=== PATIENT | female | born 1955 | race Caucasian/White ===

== ENCOUNTER 2018-03-23 12:50 | Inpatient (IN) | payer OTHER ==
[~2018-03-23] VITALS: Ht 160 cm; Wt 70.3 kg
--- NOTE | 2018-03-23 13:33 | ED CARDIAC/CP/PALPITATIONS ---
History of Present Illness General Chief Complaint: Chest Pain Stated Complaint: CP, X 4 DAYS Source: patient, old records Exam Limitations: no limitations Vital Signs & Intake/Output Vital Signs & Intake/Output ED Intake and Output 03/26 0000 03/25 1200 Intake Total 128 Output Total Balance 128 Intake, IV 128 Patient 155 lb Weight Allergies Coded Allergies: No Known Allergies (03/23/18) Reconcile Medications Amlodipine Besylate/Benazepril (Lotrel 5-20 MG Capsule) 5 MG-20 MG CAPSULE 1 CAP PO DAILY HTN (Reported) Atorvastatin Calcium 80 MG TABLET 80 MG PO 1700 HLD Heparin Sodium,Porcine/D5w (Heparin-D5w 25,000 Unit/500 Ml) 25,000 UNIT/500 ML ( 50 UNIT/ML) IV.SOLN 0 IV SEE ADMIN CRITERIA Anti Coagulation To be administered based on protocol Metoprolol Tartrate 25 MG TABLET 1 TAB PO DAILY [facility] Pantoprazole Sodium 40 MG TABLET.DR 1 TAB PO DAILY gerd (Reported) Sertraline HCl (Zoloft) 100 MG TABLET 1 TAB PO DAILY ANXIETY (Reported) Ticagrelor (Brilinta) 90 MG TABLET 90 MG PO BID [facility] Triage Note: 62F REPORTS 4 DAYS OF RIGHT ARM PAIN THAT RADIATES INTO MIDSTERNAL AREA AND SOMETIMES INTO BACK OF NECK. AT TIMES PAIN IS REPRODUCIBLE WITH PALPATION. ENDORSES N/V X1 TIME TODAY. PT WAS DOING ACTIVITY OUTSIDE. ENDORSES DIZZINESS, LIGHTHEADEDNESS AND FACIAL TINGLING. PT RECENTLY HAD PARTIAL THYROIDECTOMY Triage Nurses Notes Reviewed? yes Onset: Abrupt Duration: day(s):, gone now, intermittent, exertional HPI: Patient presents for evaluation of a lower substernal chest tightness that has been exertional and intermittent since onset 4 days ago. Patient states that overnight she began having nausea and vomiting with her chest pain episodes. She states she felt a little diaphoretic today during a chest pain episode while at a local retailer. She states that she experienced right upper extremity pain with her chest pain today but comments that yesterday both arms hurt. Patient is a family history of coronary artery disease in her father. She has a distant smoking history having quit about 30 years ago. She denies drug use. She drinks 1 or so alcoholic beverages per week generally. Fortunately the patient denies chest pain at this time. Past History Travel History Traveled to [place] past 21 day No Medical History Any Pertinent Medical History? see below for history Neurological: NONE EENT: NONE Cardiovascular: NONE Respiratory: NONE Gastrointestinal: NONE Hepatic: NONE Renal: NONE Musculoskeletal: NONE Psychiatric: NONE Endocrine: PARTIAL THYROIDECTOMY Surgical History Surgical History: non-contributory Psychosocial History What is your primary language South [place] Tobacco Use: Never used Family History Hx Contributory? No Review of Systems Review of Systems Constitutional: Reports: no symptoms. EENTM: Reports: no symptoms. Respiratory: Reports: no symptoms. Cardiovascular: Reports: see HPI. GI: Reports: no symptoms. Genitourinary: Reports: no symptoms. Musculoskeletal: Reports: no symptoms. Skin: Reports: no symptoms. Neurological/Psychological: Reports: no symptoms. Hematologic/Endocrine: Reports: no symptoms. Immunologic/Allergic: Reports: no symptoms. All Other Systems: Reviewed and Negative Physical Exam Physical Exam Cardiovascular: see below Comments: Gen.: Well-nourished, well-developed, no acute respiratory distress. Head: Normocephalic, atraumatic. Eyes: Normal inspection bilaterally Ears: Normal inspection bilaterally Nose: Normal inspection Throat/mouth : Moist mucosa Neck: Supple, full range of motion, no goiter Heart: Regular rate and rhythm, no murmurs rubs or gallops Lungs: Clear to auscultation bilaterally with normal air entry Chest: Nontender Back: Normal range of motion Abdomen: Soft, nontender, nondistended, normal bowel sounds Extremities: Normal range of motion grossly, equal radial pulses, no cyanosis clubbing or edema, calves nontender Neurologic: Cranial nerves grossly intact, speech is clear Skin: warm and dry Psychiatric: Calm, cooperative, no apparent delusions or hallucinations Core Measures ACS in differential dx? Yes CVA/TIA Diagnosis No Sepsis Present: No Sepsis Focused Exam Completed? No Progress Differential Diagnosis: AMI, musculoskeletal pain, pericarditis, unstable angina Plan of Care: Orders Procedure Date/time Status Nothing by Mouth 03/23 D Active TROPONIN LEVEL 03/23 1600 Active EKG 03/23 1532 Active Patient Data 03/23 1517 Active Misc Message 03/23 1447 Active ED Holding Orders 03/23 1447 Active Admit to inpatient 03/23 1447 Active Vital Signs 03/23 1447 Active Code Status 03/23 1447 Active EKG 03/23 1400 Active Add-on Test (ER Only) 03/23 1332 Active MAGNESIUM 03/23 1321 Complete THYROID STIMULATING HORMONE 03/23 1307 Complete TROPONIN LEVEL 03/23 1307 Complete FREE T4 03/23 1307 Complete COMPREHENSIVE METABOLIC PANEL 03/23 1307 Complete CBC WITHOUT DIFFERENTIAL 03/23 1307 Complete EKG 03/23 1252 Active Current Medications Sig/Vern Start time Last Medication Dose Stop Time Status Admin Sodium Chloride 500 ML BOLUS ONE 03/23 1545 UNVr (Normal Saline 0.9%) 03/23 1904 Nitroglycerin 0.5 GM ONCE ONE 03/23 1530 UNVr (Nitro-Bid) 03/23 1531 Enoxaparin Sodium 70 MG BID 03/23 1434 UNVr (Lovenox) Laboratory Tests 03/23/18 1321: Anion Gap 11, Estimated GFR > 60, BUN/Creatinine Ratio 21.4, Glucose 104 H, Calcium 9.7, Magnesium 2.0, Total Bilirubin 0.6, AST 56 H, ALT 33, Alkaline Phosphatase 117, Troponin I 2.36 *H, Total Protein 7.7, Albumin 4.4, Globulin 3.3, Albumin/Globulin Ratio 1.3, TSH 5.520 H, Free T4 0.97, CBC w Diff NO MAN DIFF REQ, RBC 4.95, MCV 88.3, MCH 29.4, MCHC 33.2, RDW 13.9, MPV 10.1, Gran % 81.6 H, Lymphocytes % 13.5 L, Monocytes % 3.9, Eosinophils % 0.8, Basophils % 0.2, Absolute Granulocytes 7.2 H, Absolute Lymphocytes 1.2, Absolute Monocytes 0.3, Absolute Eosinophils 0.1, Absolute Basophils 0 Initial ED EKG: NSR, ST depression Prior EKG: changed (from 2005) Comments: 03/23/2018 1:55:44 PM patient states the pain is returning, according to her nurse. Blood pressure to be checked, sublingual nitroglycerin and EKG ordered. 03/23/2018 2:12:10 PM patient's troponin is positive. Cardiology paged. Repeat EKG shows improvement of patient's ST segment depressions. 03/23/2018 3:32:18 PM patient had a return of her chest pain with neck pain as well after using the bathroom. I have ordered Nitropaste and repeat EKG. Her case has been discussed with both the pie cutter and the hospitalist. Jeffery River MD did not feel the patient needed the cardiac catheterization lab at this time. He did recommend medical management including anticoagulation. Departure Departure Disposition: STILL A PATIENT Condition: Stable Clinical Impression Primary Impression: Non-STEMI (non-ST elevated myocardial infarction) Referrals: Arcelia Bragg (PCP/Family) Departure Forms: Customer Survey General Discharge Information Prescriptions: Current Visit Scripts Heparin Sodium,Porcine/D5w (Heparin-D5w 25,000 Unit/500 Ml) 0 IV SEE ADMIN CRITERIA #1 UNITS To be administered based on protocol Metoprolol Tartrate 1 TAB PO DAILY #60 TAB Ticagrelor (Brilinta) 90 MG PO BID #30 TAB Atorvastatin Calcium 80 MG PO 1700 #120 TAB Admission Note Spoke With: Lloyd Andino MD Documentation of Exam: Documentation of any treatments & extenuating circumstances including Concerns Regarding Discharge (functional status, medication knowledge or non-compliance, living conditions, etc.) that warrant an admission rather than observation: Patient presents for evaluation of severe chest pain episodes over the past 4 days. Her EKG shows reversible ischemic changes and her troponin is elevated indicating a non-ST segment elevation myocardial infarction. The patient is having ongoing episodes of chest pain. She cannot be safely treated as an outpatient. She requires continuous cardiac monitoring for the possibility of ischemia associated dysrhythmias. She will require serial EKGs and troponin determinations along with initiation of cardioprotective medications such as aspirin, beta ed and cholesterol lowering medications. Cardiology consultation to be obtained for consideration of echocardiogram and cardiac catheterization. I feel this patient will require multiple day hospitalization. Critical Care Note Critical Care Note Critical Care Time: 30-74 min
[2018-03-23 13:35] LABS: ABSOLUTE BASOPHIL COUNT 0 /CUMM (0.0-0.2); ABSOLUTE EOSINOPHIL COUNT 0.1 /CUMM (0.0-0.7); ABSOLUTE GRANULOCYTE CT 7.2 /CUMM (1.4-6.5); ABSOLUTE LYMPH COUNT 1.2 /CUMM (1.2-3.4); ABSOLUTE MONOCYTE COUNT 0.3 /CUMM (0.10-0.60); BASOPHIL % 0.2 % (0.0-2.0); EOSINOPHIL % 0.8 % (0-5); GRANULOCYTE % 81.6 % (42.2-75.2); HEMATOCRIT 43.7 % (37-47); MEAN CORPUSCULAR HGB 29.4 PG (27.0-31.0); MEAN CORPUSCULAR HGB CONC 33.2 G/DL (33.0-37.0); MEAN CORPUSCULAR VOLUME 88.3 FL (81.0-99.0); MEAN PLATELET VOLUME 10.1 FL (7.4-10.4); PLATELET COUNT 221 /CUMM (130-400); RBC DISTRIBUTION WIDTH 13.9 % (11.5-14.5); RED BLOOD CELL CT 4.95 /CUMM (4.20-5.40); WHITE BLOOD CELL COUNT 8.8 /CUMM (4.8-10.8)
--- NOTE | 2018-03-23 14:17 | RADIOLOGY REPORT ---
EXAMINATION: XR CHEST CLINICAL INFORMATION: Chest pain for 4 days. Rule out cardiac changes. COMPARISON: None TECHNIQUE: 2 views of the chest were obtained. FINDINGS: The cardiomediastinal silhouette is borderline normal in size. Mild ectasia and tortuosity of the aorta is seen. Lungs bilaterally are symmetrically hyperinflated. No focal consolidation, effusion or pneumothorax is seen. There is diffuse osteopenia with a moderate dorsal kyphosis. IMPRESSION: 1. Cardiac silhouette is borderline normal in size. 2. Mild ectasia and tortuosity of the aorta is seen. 3. Lung findings are consistent with obstructive lung disease. Clinical correlation requested.
--- NOTE | 2018-03-23 16:01 | History & Physical ---
Jayne MONGE,Mike 03/23/18 1601: General Information and HPI History of Present Illness: Ms. Balbuena is a 62-year-old female with past medical history of hypertension, hyperlipidemia, anxiety, cholecystectomy, left partial thyroidectomy 1 month [address] Arthur revealing papillary thyroid cancer, diverticulosis, Armas's palsy, and GERD who presents with chest pain and shortness of breath. The patient notes that her chest pain started about 4 days ago and was initially only on exertion. The pain was described as achy, pressure, that initially related to that radiated to the right arm that then radiated to both arms. The pain improved with rest. Her pain progressed and last night she developed the chest pain at rest along with diaphoresis, nausea, vomiting, dizziness, palpitations, and fatigue. She decided to come into the emergency room for further evaluation. She denies any cough, diarrhea, abdominal pain, dysuria, vision changes. She is a former smoker, rarely drinks alcohol, and denies recreational drug use. She is a family history of a NY in her father when he was in his 40s. Allergies/Medications Allergies: Coded Allergies: No Known Allergies (03/23/18) Past History Travel History Traveled to [place] past 21 day No Medical History Neurological: NONE EENT: NONE Cardiovascular: NONE Respiratory: NONE Gastrointestinal: NONE Hepatic: NONE Renal: NONE Musculoskeletal: NONE Psychiatric: NONE Endocrine: PARTIAL THYROIDECTOMY Review of Systems Review of Systems Constitutional: Reports: see HPI. EENTM: Reports: no symptoms. Cardiovascular: Reports: see HPI. Respiratory: Reports: see HPI. GI: Reports: no symptoms. Genitourinary: Reports: no symptoms. Musculoskeletal: Reports: no symptoms. Skin: Reports: no symptoms. Neurological/Psychological: Reports: no symptoms. Hematologic/Endocrine: Reports: no symptoms. Immunologic/Allergic: Reports: no symptoms. All Other Systems: Reviewed and Negative Exam & Diagnostic Data Last 24 Hrs of Vital Signs/I&O Vital Signs Date Time Temp Pulse Resp B/P B/P Pulse O2 O2 Flow FiO2 Mean Ox Delivery Rate 03/23 1436 80 117/71 03/23 1436 77 18 108/71 98 Room Air 03/23 1356 80 117/71 03/23 1347 96 147/90 03/23 1305 97.6 96 16 147/90 95 Room Air Intake & Output 06/16 1600 06/16 0800 06/16 0000 Intake Total Output Total Balance Patient 68.039 kg Weight Physical Exam General Appearance Alert, Oriented X3, Cooperative, No Acute Distress Cardiovascular Regular Rate, Normal S1, Normal S2 Lungs Clear to Auscultation Abdomen Normal Bowel Sounds, Soft, No Tenderness Extremities No Edema, Normal Pulses, No Tenderness/Swelling Assessment/Plan Assessment: Ms. Balbuena is a 62-year-old female with past medical history of hypertension, hyperlipidemia, anxiety, cholecystectomy, left partial thyroidectomy [address] Arthur revealing papillary thyroid cancer, diverticulosis, Armas's palsy, and GERD who presents with chest pain and shortness of breath. On presentation, vital signs were T 97.6, HR 96, RR 16, BP 147/90, saturating 95 % room air. Laboratories were significant for normal CBC, normal BEP, troponin 2.36, TSH 5.520, free T4 0.97. Chest x-ray was negative for any acute process. She will be admitted to the intensive care unit and treated for the following problems: 1. Non-ST elevation myocardial infarction #Non-ST elevation myocardial infarction: Patient presents with signs and symptoms of acute coronary syndrome. Initial troponin was 2.36, one hour later was 3.46. EKG shows diffuse ST depressions without ST elevations, potentially indicating a septal NY. The patient is currently with chest pain though it is mild and worse with exertion. Her AMISH score is 4, indicating a 20% chance of all-cause mortality, new or recurrent NY, or severe recurrent ischemia requiring urgent revascularization. While she may benefit from being in a hospital that has the ability to perform catheterization, it has been decided by cardiology that she will stay in the ICU pending further evaluation. -Heparin drip -Nitroglycerin drip if she becomes symptomatic -Echocardiogram -Consider transfer to syrup machine laborer if she becomes more symptomatic, develops ST elevations, or has uptrending troponins -Trend EKG and troponins -Cardiology consult -Aspirin #Chronic medical problems: -Continue other home medications DVT prophylaxis with heparin N.p.o. Full code As Ranked By This Provider Problem List: 1. Non-STEMI (non-ST elevated myocardial infarction) Core Measures/Misc (06/24) Acute Coronary Syndrome ACS Diagnosis: Yes Congestive Heart Failure Congestive Heart Failure Diagnosis No Cerebrovascular Accident CVA/TIA Diagnosis: No VTE (View Protocol) VTE Risk Factors Age>40 No Mechanical VTE Prophylaxis d/t N/A MechProphylax Ordered No VTE Pharm Prophylaxis d/t NA PharmProphylax ordered Sepsis (View protocol) Sepsis Present: No If YES complete Sepsis Event Note If YES complete Sepsis Event Note Lexii MONGE,Anne Marie 03/23/18 1601: Core Measures/Misc (06/24) Sepsis (View protocol) If YES complete Sepsis Event Note If YES complete Sepsis Event Note Resident Review Statement Resident Statement: examined this patient, discussed with physician general internal medicine Other Findings: H Ms Balbuena is a pleasant 62-year-old female with past medical history of diverticulosis, acid reflux disease, Armas's palsy (in 1979) and papillary thyroid cancer who presented to the emergency department on 03/23/2018 complaining of chest pain and shortness of breath. Patient states that her symptoms started approximately 4 days ago. She has been experiencing chest pain substernal in location radiating to the right arm, pain did not radiate up to the jaw. Patient has been described as pressure and achy. Patient states that chest pain was intermittent and would resolve when she longer exerted herself. As its peak the pain was rated at an 8 out of 10 in severity. Patient states that she recently underwent a left thyroidectomy under the care of Dr Holden at [facility]. Patient also reports generalized fatigue and dyspnea as well as dyspnea on exertion. She also reports heart palpitations. States that she's been under a lot of stress. States that she has a wedding of her daughter coming up in April. Prior to coming in she endorsed one epidose of vomiting. Vomiting was non bloody. ROS: As Above Exam Temperature 97.6, pulse rate 96, respirations 16, blood pressure 147/90, saturating 95% on room air. Gen.: Well-nourished, well-developed, no acute respiratory distress. Girlfriend at bedside. Head: Normocephalic, atraumatic. Eyes: Normal inspection bilaterally Ears: Normal inspection bilaterally Nose: Normal inspection Throat/mouth: Dry mucous memebranes. Neck: Supple, full range of motion, no goiter Heart: Regular rate and rhythm, no murmurs rubs or gallops Lungs: Clear to auscultation bilaterally with normal air entry Chest: Nontender Back: Normal range of motion Abdomen: Soft, nontender, nondistended, normal bowel sounds Extremities: Normal range of motion grossly, equal radial pulses, no cyanosis clubbing or edema, calves nontender Neurologic: Cranial nerves grossly intact, speech is clear Skin: warm and dry Psychiatric: Calm, cooperative, no apparent delusions or hallucinations Labs WBC 8.8, H&H 14.5/43.7, platelets 221, sodium 143, potassium 4.1, BUN 15, creatinine 0.7. Troponin: 2.36 Imaging As Above A/P H Ms Balbuena is a pleasant 62-year-old female with past medical history of diverticulosis, acid reflux disease, Armas's palsy (in 1979) and papillary thyroid cancer who presented to the emergency department on 03/23/2018 complaining of chest pain and shortness of breath. Her initial EKGs do show some ST changes in V3, V4 and V5. These appear to have got better on repeat EKG performed at 1409 on 03/23/2018. Her troponin has also continued to rise 2.36-3.46. Her AMISH score is 4 ( Risk factors, Severe Engina, Positive Cardiac Markers, EKG Changes). Below is a problem list and plan of care. #Chest pain due to NSTEMI #History of HTN #History of Anxiety #Histroy of GERD #Obstructive lung disease changes seen on imaging Admit to [facility] Vitals Q 2. Heparin drip, with bolus, titrate per protocol Formal Cardiology consultation obtained with Dr River Troponin and EKG at 2100, if increases, continue to monitor Q6 Hours. If the patient becomes symptomatic, begin Nitroglycerin Drip. Echocardiogram Have a lot threshold to transfer to laboratory apparatus glass blower if hemodynamically unstable become symptomatic or any changes on EKG are noted. May use when necessary morphine for symptomatic relief of chest pain. Keep NPO for now owing to possible catheterization. Continue BBlocker ( metoprolol tartrate 25 mg) Aspirin and Atorvastatin 80 mg. May reqire outpatient referral to Pulmonology Diet: NPO for now. DVT Ppx: Heparin Drip Patient is a full code Lloyd Andino MD 03/23/18 7243: General Information and HPI Allergies/Medications Home Med list Amlodipine Besylate/Benazepril (Lotrel 5-20 MG Capsule) 5 MG-20 MG CAPSULE 1 CAP PO DAILY HTN (Reported) Atorvastatin Calcium (Lipitor) 40 MG TABLET 1 TAB PO DAILY HLD (Reported) Heparin Sodium,Porcine/D5w (Heparin-D5w 25,000 Unit/500 Ml) 25,000 UNIT/500 ML ( 50 UNIT/ML) IV.SOLN 0 IV SEE ADMIN CRITERIA Anti Coagulation To be administered based on protocol Metoprolol Tartrate 25 MG TABLET 1 TAB PO DAILY [facility] Pantoprazole Sodium 40 MG TABLET.DR 1 TAB PO DAILY gerd (Reported) Sertraline HCl (Zoloft) 100 MG TABLET 1 TAB PO DAILY ANXIETY (Reported) Past History Surgical History Surgical History: none Core Measures/Misc (06/24) Sepsis (View protocol) If YES complete Sepsis Event Note If YES complete Sepsis Event Note Attending MD Review Statement Attending Statement Attending MD Statement: examined this patient, discuss w/resident/PA/PIECER UP, agreed w/resident/PA/PIECER UP, discussed with family, reviewed EMR data (avail), reviewed images, amended to note Attending Assessment/Plan: The patient is a 62 yo female with h/o HTN, HL, anxiety, s/p partial thyroidectomy, & GERD who presented in the ED with c/o substernal chest pain that had been ongoing for 4 days. Pain was associated with exertion and resolved post rest. She described a pressure that radiated to her right shoulder and arm. Total the pain has progressed and occurred at rest. She was diaphoretic. In the ED she had recurrent pain ambulating to bathroom and resolved post NTG, however she noted H/A, nausea and vomiting post NTG. FG significant for early CAD in father (in 40's). Physical Exam: VS: T 98.6, P 96, R 16, BP 147/89-117/71, PO 95% RA HEENT: eyes- PERRLA, EOMI tamika - nl mucosa Neck: no bruits/JVD Chest: clear Cor: RRR nl S1, S2 w/o murm Abd: BS+, soft, NT, - HSM Ext: no edema, pulses 2+ Neuro: alert & oriented x 3, non-focal exam Labs/Tests- as above Impression/Plan; #Chest Pain - with positive troponins and ST depression on EKG c/w NSTEMI. The patient has had 4 days of exertional anginal symptoms, however today had resting symptoms and recurrence in ED. Troponins trending upward- 2.36-3.46. AMISH score 2. Plan: Admit to ICU Discussed option of transfer to other facility for cardiac cath with Dr. Gonzalez who elected to keep patient at [facility] and treat for NSTEMI with IV heparin, beta ed, Atorvastatin, ASA, etc. IV NTG if recurrent chest pain (had H/A with nausea from SL). Will trend troponins further and if significant increase consider transfer. ECHO in morning. #HTN- patient on Amlodipine/Benzapril at home. Plan: Metoprolol given in ED and will continue- monitor HR and BP. #Hyperlipidemia- normally on Atorvastatin at home. Plan: Continue Atorvastatin. #Depression- patient on Sertraline as OP. Plan: Continue Sertraline. #GERD- has h/o acid reflux as per patient on pantoprazole at home. Plan: Treat with Omeprazole in hospital.
[2018-03-23] MEDS ORDERED: LOTREL 5-20 MG1 EACH PO (16:23)
[2018-03-23] MEDS ORDERED: ZOLOFT100 M1 PO (16:23)
[2018-03-23] MEDS ORDERED: LIPITOR40 M1 PO (16:23)
[2018-03-23] MEDS ORDERED: PANTOPRAZOLE SO40 M1 PO (16:23)
[2018-03-23 16:37] LABS: PT 10.8 SEC (9.4-12.5); PTT 31 SEC (25-37)
--- NOTE | 2018-03-23 17:45 | Discharge Summary ---
Visit Information Visit Dates Admission Date: 03/23/18 Discharge Date: 03/25/18 Hospital Course Course Attending Physician: Lloyd Andino MD Primary Care Physician: Arcelia Bragg Other Care Providers: Dr River Consulting Request: Consulting Specialty: Cardiology Consulting Physician: Dr. River Reason for Consult: Chest pain/elevated troponin Hospital Course: H Ms Balbuena is a pleasant 62-year-old female with past medical history of diverticulosis, acid reflux disease, Armas's palsy (in 1979) and papillary thyroid cancer who presented to the emergency department on 03/23/2018 complaining of chest pain and shortness of breath. At the time of presentation, Temperature 97.6, pulse rate 96, respirations 16, blood pressure 147/90, saturating 95% on room air. Labs: WBC 8.8, H&H 14.5/43.7, platelets 221, sodium 143, potassium 4.1, BUN 15, creatinine 0.7. Troponin: 2.36 Her initial EKG did show some ST changes in V3, V4 and V5. These appear to have got better on repeat EKG performed at 1409 on 03/23/2018. Her troponin has also continued to rise 2.36-3.46 it peaked at 6.57 before dropping and the last recorded at 1800 was 4.96 after which we did not continue with trending. She was admitted to the critical care unit and below is a problem list in summary of care she received under us. #NSTEMI #History of HTN #History of Anxiety #Histroy of GERD She was started on a heparin drip after administration of bolus. Her drip was titrated based on protocol and PTT. A formal cardiology consultation was obtained. Patient's troponin and EKG were trended every 6 hours. An echocardiogram was also ordered which showed an ejection fraction of 45% with wall hypokiness Patient was also administered a beta ed, aspirin and high-dose statin and brillinta She is being transferred to [facility] for cardiac catheterization Allergies: Coded Allergies: No Known Allergies (03/23/18) Significant Procedures: Echocardiogram: Left ventricular cavity size normal. Normal left ventricular wall thickness. There is severe hypokinesis of the mid to distal anterior/anteroseptal wall. Left ventricular ejection fraction is estimated at 45 %. Pertinent Lab Results: Laboratory Tests 03/25 03/24 03/24 0400 2000 1900 Chemistry Sodium (137 - 145 mmol/L) 139 Potassium (3.5 - 5.1 mmol/L) 3.4 L Chloride (98 - 107 mmol/L) 104 Carbon Dioxide (22 - 30 mmol/L) 29 Anion Gap (5 - 16) 7 BUN (7 - 17 mg/dL) 12 Creatinine (0.5 - 1.0 mg/dL) 0.6 Estimated GFR (>60 ml/min) > 60 Glucose (65 - 99 mg/dL) 112 H Calcium (8.4 - 10.2 mg/dL) 8.5 Phosphorus (2.5 - 4.5 mg/dL) 3.6 Magnesium (1.6 - 2.3 mg/dL) 1.8 Total Bilirubin (0.2 - 1.3 mg/dL) 0.7 AST (14 - 36 U/L) 102 H ALT (9 - 52 U/L) 39 Albumin (3.5 - 5.0 g/dL) 3.3 L Coagulation APTT (25 - 37 SEC) 92 H 37 Cancelled Hematology CBC w Diff NO MAN DIFF REQ WBC (4.8 - 10.8 /CUMM) 8.3 RBC (4.20 - 5.40 /CUMM) 4.18 L Hgb (12.0 - 16.0 G/DL) 12.4 Hct (37 - 47 %) 36.4 L MCV (81.0 - 99.0 FL) 87.1 MCH (27.0 - 31.0 PG) 29.8 MCHC (33.0 - 37.0 G/DL) 34.2 RDW (11.5 - 14.5 %) 13.8 Plt Count (130 - 400 /CUMM) 159 MPV (7.4 - 10.4 FL) 11.1 H Gran % (42.2 - 75.2 %) 80.2 H Lymphocytes % (20.5 - 51.1 %) 13.4 L Monocytes % (1.7 - 9.3 %) 5.8 Eosinophils % (0 - 5 %) 0.3 Basophils % (0.0 - 2.0 %) 0.3 Absolute Granulocytes (1.4 - 6.5 /CUMM) 6.7 H Absolute Lymphocytes (1.2 - 3.4 /CUMM) 1.1 L Absolute Monocytes (0.10 - 0.60 /CUMM) 0.5 Absolute Eosinophils (0.0 - 0.7 /CUMM) 0 Absolute Basophils (0.0 - 0.2 /CUMM) 0 03/24 03/24 03/24 1806 1300 0630 Chemistry Troponin I (< 0.11 ng/ml) 4.96 *H 5.86 *H 5.11 *H Coagulation APTT (25 - 37 SEC) 112 *H 03/24 03/24 03/23 0630 0230 2305 Chemistry Sodium (137 - 145 mmol/L) 140 Potassium (3.5 - 5.1 mmol/L) 4.1 Chloride (98 - 107 mmol/L) 107 Carbon Dioxide (22 - 30 mmol/L) 25 Anion Gap (5 - 16) 9 BUN (7 - 17 mg/dL) 15 Creatinine (0.5 - 1.0 mg/dL) 0.6 Estimated GFR (>60 ml/min) > 60 BUN/Creatinine Ratio (7 - 25 %) 25.0 Magnesium (1.6 - 2.3 mg/dL) 2.0 Troponin I (< 0.11 ng/ml) 4.94 *H Coagulation APTT (25 - 37 SEC) 42 H 107 *H Hematology CBC w Diff NO MAN DIFF REQ WBC (4.8 - 10.8 /CUMM) 8.0 RBC (4.20 - 5.40 /CUMM) 4.60 Hgb (12.0 - 16.0 G/DL) 13.6 Hct (37 - 47 %) 40.8 MCV (81.0 - 99.0 FL) 88.7 MCH (27.0 - 31.0 PG) 29.5 MCHC (33.0 - 37.0 G/DL) 33.3 RDW (11.5 - 14.5 %) 13.9 Plt Count (130 - 400 /CUMM) 190 MPV (7.4 - 10.4 FL) 11.2 H Gran % (42.2 - 75.2 %) 69.9 Lymphocytes % (20.5 - 51.1 %) 22.8 Monocytes % (1.7 - 9.3 %) 5.6 Eosinophils % (0 - 5 %) 1.2 Basophils % (0.0 - 2.0 %) 0.5 Absolute Granulocytes (1.4 - 6.5 /CUMM) 5.6 Absolute Lymphocytes (1.2 - 3.4 /CUMM) 1.8 Absolute Monocytes (0.10 - 0.60 /CUMM) 0.5 Absolute Eosinophils (0.0 - 0.7 /CUMM) 0.1 Absolute Basophils (0.0 - 0.2 /CUMM) 0 03/23 03/23 03/23 2055 1545 1321 Chemistry Sodium (137 - 145 mmol/L) 143 Potassium (3.5 - 5.1 mmol/L) 4.1 Chloride (98 - 107 mmol/L) 104 Carbon Dioxide (22 - 30 mmol/L) 28 Anion Gap (5 - 16) 11 BUN (7 - 17 mg/dL) 15 Creatinine (0.5 - 1.0 mg/dL) 0.7 Estimated GFR (>60 ml/min) > 60 BUN/Creatinine Ratio (7 - 25 %) 21.4 Glucose (65 - 99 mg/dL) 104 H Calcium (8.4 - 10.2 mg/dL) 9.7 Magnesium (1.6 - 2.3 mg/dL) 2.0 Total Bilirubin (0.2 - 1.3 mg/dL) 0.6 AST (14 - 36 U/L) 56 H ALT (9 - 52 U/L) 33 Alkaline Phosphatase (<127 U/L) 117 Troponin I (< 0.11 ng/ml) 6.57 *H 3.46 *H 2.36 *H Total Protein (6.3 - 8.2 g/dL) 7.7 Albumin (3.5 - 5.0 g/dL) 4.4 Globulin (1.9 - 4.2 gm/dL) 3.3 Albumin/Globulin Ratio (1.1 - 2.2 %) 1.3 Triglycerides (<150 mg/dL) 93 Cholesterol (<200 MG/DL) 204 H LDL Cholesterol, Calc (65 - 129 mg/dL) 120 HDL Cholesterol (40 - 60 mg/dL) 66 H Cholesterol/HDL Ratio (0.00 - 4.23 %) 3 TSH (0.270 - 4.200 uIU/mL) 5.520 H Free T4 (0.78 - 2.44 ng/dL) 0.97 Hematology CBC w Diff NO MAN DIFF REQ WBC (4.8 - 10.8 /CUMM) 8.8 RBC (4.20 - 5.40 /CUMM) 4.95 Hgb (12.0 - 16.0 G/DL) 14.5 Hct (37 - 47 %) 43.7 MCV (81.0 - 99.0 FL) 88.3 MCH (27.0 - 31.0 PG) 29.4 MCHC (33.0 - 37.0 G/DL) 33.2 RDW (11.5 - 14.5 %) 13.9 Plt Count (130 - 400 /CUMM) 221 MPV (7.4 - 10.4 FL) 10.1 Gran % (42.2 - 75.2 %) 81.6 H Lymphocytes % (20.5 - 51.1 %) 13.5 L Monocytes % (1.7 - 9.3 %) 3.9 Eosinophils % (0 - 5 %) 0.8 Basophils % (0.0 - 2.0 %) 0.2 Absolute Granulocytes (1.4 - 6.5 /CUMM) 7.2 H Absolute Lymphocytes (1.2 - 3.4 /CUMM) 1.2 Absolute Monocytes (0.10 - 0.60 /CUMM) 0.3 Absolute Eosinophils (0.0 - 0.7 /CUMM) 0.1 Absolute Basophils (0.0 - 0.2 /CUMM) 0 03/23 130 Coagulation PT (9.4 - 12.5 SEC) 10.8 INR (0.90 - 1.19) 0.99 APTT (25 - 37 SEC) 31 SERVICE DATE: 03/23/18-1306 EXAM TYPE: RAD - XRY-CHEST XRAY, TWO VIEWS EXAMINATION: XR CHEST CLINICAL INFORMATION: Chest pain for 4 days. Rule out cardiac changes. COMPARISON: None TECHNIQUE: 2 views of the chest were obtained. FINDINGS: The cardiomediastinal silhouette is borderline normal in size. Mild ectasia and tortuosity of the aorta is seen. Lungs bilaterally are symmetrically hyperinflated. No focal consolidation, effusion or pneumothorax is seen. There is diffuse osteopenia with a moderate dorsal kyphosis. IMPRESSION: 1. Cardiac silhouette is borderline normal in size. 2. Mild ectasia and tortuosity of the aorta is seen. 3. Lung findings are consistent with obstructive lung disease. Clinical correlation requested. DICTATED BY: Manolo MONGE,Vivienne Bell Disposition Summary Disposition Principal Diagnosis: Chest pain due to NSTEMI Additional Diagnosis: #History of HTN #History of Anxiety #Histroy of GERD Discharge Disposition: other general hospital Discharge Instructions General Discharge Information Code Status: Full Code Patient's Diet: NPO for now. If no intervantion is warranted, may consider heart healthy. Patient's Activity: As Tolerated Follow-Up Instructions/Appts: Please follow-up with your primary care physician within 7 days after discharge. Please follow up with a steel shot header operator in a week. You will be provided with a referral. Medications at Discharge Discharge Medications: Stop taking the following medications: Atorvastatin Calcium (Lipitor) 40 MG TABLET ORAL DAILY Continue taking these medications: Pantoprazole Sodium (Pantoprazole Sodium) 40 MG TABLET.DR 1 Tablet ORAL DAILY Amlodipine Besylate/Benazepril (Lotrel 5-20 MG Capsule) 5 MG-20 MG CAPSULE 1 Capsule ORAL DAILY Sertraline HCl (Zoloft) 100 MG TABLET 1 Tablet ORAL DAILY Start taking the following new medications: Ticagrelor (Brilinta) 90 MG TABLET 90 Milligram ORAL TWICE DAILY Qty = 30 No Refills Atorvastatin Calcium (Atorvastatin Calcium) 80 MG TABLET 80 Milligram ORAL 5 PM Qty = 120 No Refills Comments: Last Taken:03/24/18 Time:1650 Heparin Sodium,Porcine/D5w (Heparin-D5w 25,000 Unit/500 Ml) 25,000 UNIT/500 ML ( 50 UNIT/ML) IV.SOLN 0 INTRAVEN SEE INSTRUCTIONS Qty = 1 No Refills Instructions: To be administered based on protocol Comments: INFUSING AT 13.6 ML / HR 10U/KG/HR Metoprolol Tartrate (Metoprolol Tartrate) 25 MG TABLET 1 Tablet ORAL DAILY Qty = 60 No Refills Comments: Last Taken:03/23/18 Time:2251 Copies To: Jeffery River MD; Arcelia Bragg; Sae MONGE,Gunnar Attending MD Review Statement Documenting Attending: Lloyd Andino MD Other Findings: Agree with summary as above. ECHO showing AW WMA and reduced EF 45%. Needs urgent cath. Being transferred to [facility] in [place].
--- NOTE | 2018-03-23 17:52 | Patient Discharge Instructions ---
Discharge Instructions General Discharge Information You were seen/treated for: Chest pain with elevated troponin You had these procedures: Echocardiogram Special Instructions: Please follow-up with your primary care physician within 7 days after discharge. Please follow up with a art appraiser in a week. You will be provided with a referral. Diet Continue normal diet: No Recommended Diet: Heart Healthy Activity Full Activity/No Limits: No Activity Self Limited: Yes (As Tolerated ) Acute Coronary Syndrome Inclusion Criteria At DC or during hospital stay patient has or had the following: ACS DIAGNOSIS Yes Discharge Core Measures Meds if any: Prescribed or Continued at Discharge JANN/ARB if EF <40% No Aspirin Yes Beta-Mary Yes Statin Yes Meds if any: NOT Prescribed or Continued at Discharge Congestive Heart Failure Inclusion Criteria At DC or during hospital stay patient has or had the following: CHF DIAGNOSIS No Discharge Core Measures Meds if any: Prescribed or Continued at Discharge Meds if any: NOT Prescribed or Continued at Discharge Cerebrovascular accident Inclusion Criteria At DC or during hospital stay patient has or had the following: CVA/TIA Diagnosis No Discharge Core Measures Meds if any: Prescribed or Continued at Discharge Meds if any: NOT Prescribed or Continued at Discharge Venous thromboembolism Inclusion Criteria VTE Diagnosis No VTE Type NONE VTE Confirmed by (Test) NONE Discharge Core Measures - Per Current guidelines, there needs to be overlap - treatment for the first 5 days of Warfarin therapy. - If discharged on Warfarin prior to 5 days of - overlap therapy, the patient will need to be - assessed for post discharge needs including - *Post discharge parental anticoagulation - *Warfarin and/or parental anticoagulation education - *Follow up date to check INR post discharge At least 5 days overlap therapy as Inpatient No Meds if any: Prescribed or Continued at Discharge Note: Overlap Therapy is Warfarin and Anticoagulant Meds if any: NOT Prescribed or Continued at Discharge
[2018-03-23] MEDS ORDERED: HEPARIN-D525000 UNI1 IV (17:54)
[2018-03-23] MEDS ORDERED: METOPROLOL TART25 M1 PO (17:55)
[2018-03-23 18:30] VITALS: BP 102/60
--- NOTE | 2018-03-23 21:58 | Admission Certification ---
Admission Certification Certification Statement - As attending physician, I certify that at the time of - admission, based on clinical presentation, severity of - symptoms, need for further diagnostic testing and - therapeutic interventions, and risk of adverse outcomes - without in-hospital treatment, in my clinical assessment, - this patient requires an acute hospital stay for a minimum - of two nights or longer. I have also considered psychsocial - factors such as support system, advanced age, financial - issues, cognitive issues, and failed out-patient treatments, - past re-admission history, safety of patient, and lack of - compliance as applicable. Specific rationale supporting this admission is: The patient presents with chest pain and EKG changes c/w NSTEMI - myocardial infarction. Has increasing troponin levels. Needs admission for close cardiac monitorine, serial troponin levels, IV heparin, beta ed, statin. Cardiology consult- Dr. Gonzalez (felt no need to transfer), ECHO in morning. Admit to ICU.
--- NOTE | 2018-03-23 22:07 | Event Note ---
Event Note Event Note: Background : positive troponin, vague chest pain 10/17 after using rest room 20 mins, now chest pain free, flattening of st segment in v3,v4,v5 compare to depressions in previous EKG Situation: The third set of troponin was 6.57 , previous troponin trend 2.36>>> 3.46>>6.57 EKG showed flattening of St segment compare to previous EKG Assessment : Vitals HR : 80, BP :122/64, afebrile RR:18 no complaints of chest pain right now Plan : cardiology answering service contacted. Expected call back from Dr sifuentes, got call back from Dr Del Valle Discussed the situation with him Will give additional metoprolol [address] aspirin [address] to trend troponin will ct watch , no transfer for now. Dr Del Valle will talk to Dr Sifuentes directly. News Camera Operator Dr Man updated.
[2018-03-23 23:30] LABS: PTT 107 SEC (25-37)
[2018-03-24] VITALS: BP 122/64
[2018-03-24 07:12] LABS: PTT 42 SEC (25-37)
[2018-03-24 08:00] VITALS: BP 92/60
[2018-03-24 08:19] LABS: ABSOLUTE BASOPHIL COUNT 0 /CUMM (0.0-0.2); ABSOLUTE EOSINOPHIL COUNT 0.1 /CUMM (0.0-0.7); ABSOLUTE GRANULOCYTE CT 5.6 /CUMM (1.4-6.5); ABSOLUTE LYMPH COUNT 1.8 /CUMM (1.2-3.4); ABSOLUTE MONOCYTE COUNT 0.5 /CUMM (0.10-0.60); BASOPHIL % 0.5 % (0.0-2.0); EOSINOPHIL % 1.2 % (0-5); GRANULOCYTE % 69.9 % (42.2-75.2); HEMATOCRIT 40.8 % (37-47); MEAN CORPUSCULAR HGB 29.5 PG (27.0-31.0); MEAN CORPUSCULAR HGB CONC 33.3 G/DL (33.0-37.0); MEAN CORPUSCULAR VOLUME 88.7 FL (81.0-99.0); MEAN PLATELET VOLUME 11.2 FL (7.4-10.4); PLATELET COUNT 190 /CUMM (130-400); RBC DISTRIBUTION WIDTH 13.9 % (11.5-14.5)
--- NOTE | 2018-03-24 08:20 | PN- Resident CRCU ---
See Addendum Subjective HPI/CRCU Issues: NSTEMI 24 Hour Events: Seen and examined patient this morning. Currently she remains pain-free. She does report that overnight she had some cramping like sensation in her right upper shoulder which seems to radiate down that arm. Denies shortness of breath chest pain nausea vomiting. Objective Vital Signs & I&O Last 8 Hrs of Vitals and I&O: Intake & Output 03/24 1600 03/24 0800 03/24 0000 Intake Total 137.2 632.7 Output Total 200 Balance 137.2 432.7 Intake, IV 87.2 602.7 Intake, Oral 50 30 Output, Urine 200 Patient 157 lb Weight Weight Bed scale Measurement Method Laboratory Tests 03/24 03/24 03/24 0630 0630 0230 Chemistry Sodium (137 - 145 mmol/L) 140 Potassium (3.5 - 5.1 mmol/L) 4.1 Chloride (98 - 107 mmol/L) 107 Carbon Dioxide (22 - 30 mmol/L) 25 Anion Gap (5 - 16) 9 BUN (7 - 17 mg/dL) 15 Creatinine (0.5 - 1.0 mg/dL) 0.6 Estimated GFR (>60 ml/min) > 60 BUN/Creatinine Ratio (7 - 25 %) 25.0 Magnesium (1.6 - 2.3 mg/dL) 2.0 Troponin I (< 0.11 ng/ml) 5.11 *H 4.94 *H Coagulation APTT (25 - 37 SEC) 42 H Hematology CBC w Diff NO MAN DIFF REQ WBC (4.8 - 10.8 /CUMM) 8.0 RBC (4.20 - 5.40 /CUMM) 4.60 Hgb (12.0 - 16.0 G/DL) 13.6 Hct (37 - 47 %) 40.8 MCV (81.0 - 99.0 FL) 88.7 MCH (27.0 - 31.0 PG) 29.5 MCHC (33.0 - 37.0 G/DL) 33.3 RDW (11.5 - 14.5 %) 13.9 Plt Count (130 - 400 /CUMM) 190 MPV (7.4 - 10.4 FL) 11.2 H Gran % (42.2 - 75.2 %) 69.9 Lymphocytes % (20.5 - 51.1 %) 22.8 Monocytes % (1.7 - 9.3 %) 5.6 Eosinophils % (0 - 5 %) 1.2 Basophils % (0.0 - 2.0 %) 0.5 Absolute Granulocytes (1.4 - 6.5 /CUMM) 5.6 Absolute Lymphocytes (1.2 - 3.4 /CUMM) 1.8 Absolute Monocytes (0.10 - 0.60 /CUMM) 0.5 Absolute Eosinophils (0.0 - 0.7 /CUMM) 0.1 Absolute Basophils (0.0 - 0.2 /CUMM) 0 03/23 03/23 03/23 2305 2055 1545 Chemistry Troponin I (< 0.11 ng/ml) 6.57 *H 3.46 *H Coagulation APTT (25 - 37 SEC) 107 *H 03/23 03/23 1321 1307 Chemistry Sodium (137 - 145 mmol/L) 143 Potassium (3.5 - 5.1 mmol/L) 4.1 Chloride (98 - 107 mmol/L) 104 Carbon Dioxide (22 - 30 mmol/L) 28 Anion Gap (5 - 16) 11 BUN (7 - 17 mg/dL) 15 Creatinine (0.5 - 1.0 mg/dL) 0.7 Estimated GFR (>60 ml/min) > 60 BUN/Creatinine Ratio (7 - 25 %) 21.4 Glucose (65 - 99 mg/dL) 104 H Calcium (8.4 - 10.2 mg/dL) 9.7 Magnesium (1.6 - 2.3 mg/dL) 2.0 Total Bilirubin (0.2 - 1.3 mg/dL) 0.6 AST (14 - 36 U/L) 56 H ALT (9 - 52 U/L) 33 Alkaline Phosphatase (<127 U/L) 117 Troponin I (< 0.11 ng/ml) 2.36 *H Total Protein (6.3 - 8.2 g/dL) 7.7 Albumin (3.5 - 5.0 g/dL) 4.4 Globulin (1.9 - 4.2 gm/dL) 3.3 Albumin/Globulin Ratio (1.1 - 2.2 %) 1.3 Triglycerides (<150 mg/dL) 93 Cholesterol (<200 MG/DL) 204 H LDL Cholesterol, Calc (65 - 129 mg/dL) 120 HDL Cholesterol (40 - 60 mg/dL) 66 H Cholesterol/HDL Ratio (0.00 - 4.23 %) 3 TSH (0.270 - 4.200 uIU/mL) 5.520 H Free T4 (0.78 - 2.44 ng/dL) 0.97 Coagulation PT (9.4 - 12.5 SEC) 10.8 INR (0.90 - 1.19) 0.99 APTT (25 - 37 SEC) 31 Hematology CBC w Diff NO MAN DIFF REQ WBC (4.8 - 10.8 /CUMM) 8.8 RBC (4.20 - 5.40 /CUMM) 4.95 Hgb (12.0 - 16.0 G/DL) 14.5 Hct (37 - 47 %) 43.7 MCV (81.0 - 99.0 FL) 88.3 MCH (27.0 - 31.0 PG) 29.4 MCHC (33.0 - 37.0 G/DL) 33.2 RDW (11.5 - 14.5 %) 13.9 Plt Count (130 - 400 /CUMM) 221 MPV (7.4 - 10.4 FL) 10.1 Gran % (42.2 - 75.2 %) 81.6 H Lymphocytes % (20.5 - 51.1 %) 13.5 L Monocytes % (1.7 - 9.3 %) 3.9 Eosinophils % (0 - 5 %) 0.8 Basophils % (0.0 - 2.0 %) 0.2 Absolute Granulocytes (1.4 - 6.5 /CUMM) 7.2 H Absolute Lymphocytes (1.2 - 3.4 /CUMM) 1.2 Absolute Monocytes (0.10 - 0.60 /CUMM) 0.3 Absolute Eosinophils (0.0 - 0.7 /CUMM) 0.1 Absolute Basophils (0.0 - 0.2 /CUMM) 0 Microbiology Date/Time Procedure - Status Source Growth 03/23 1813 Surveillance Culture - RECD UPPER RESP 03/23 1813 Surveillance Culture - RECD GI Exam General Appearance: no apparent distress, alert, awake, comfortable Respiratory: normal breath sounds, lungs clear Cardiovascular: regular rate/rhythm Gastrointestinal: normal bowel sounds, soft Extremities: no edema Current Medications: Current Medications Sig/Vern Start time Last Medication Dose Route Stop Time Status Admin Acetaminophen 1,000 MG ONCE ONE 03/24 0100 DC 03/24 N/A 1 UNIT IV 03/24 0114 0059 Acetaminophen 0 .STK-MED ONE 03/23 1738 DC PO Alprazolam 0.5 MG ONCE ONE 03/23 2345 DC 03/23 PO 03/23 2346 2354 Aspirin 81 MG DAILY 03/23 2230 AC 03/24 PO 0902 Aspirin 81 MG ONCE ONE 03/23 1345 DC 03/23 PO 03/23 1346 1347 Aspirin 0 .STK-MED ONE 03/23 1344 DC PO Atorvastatin Calcium 80 MG 1700 03/23 1745 03/23 PO 1959 Enoxaparin Sodium 70 MG BID 03/23 2100 CAN SC Enoxaparin Sodium 0 .STK-MED ONE 03/23 1533 DC SC Enoxaparin Sodium 0 .STK-MED ONE 03/23 1533 DC SC Enoxaparin Sodium 70 MG BID 03/23 1434 DC SC Heparin Sodium 4,300 UNIT ONCE ONE 03/24 0745 DC 03/24 (Porcine) IV 03/24 0746 0750 Heparin Sodium 0 .STK-MED ONE 03/23 1649 DC (Porcine) .ROUTE Heparin Sodium 4,000 UNIT ONCE ONE 03/23 1645 DC 03/23 (Porcine) IV 03/23 1646 1652 Heparin Sodium/ 25,000 UNIT Q24H 03/23 1615 03/23 Dextrose IV 1652 Dextrose/Water 500 ML Lorazepam 0.5 MG ONCE PRN 03/23 1730 DC IV 03/23 2300 Metoprolol Tartrate 25 MG ONCE ONE 03/23 2230 DC 03/23 PO 03/23 2231 2251 Metoprolol Tartrate 5 MG ONCE ONE 03/23 1430 DC 03/23 IV 03/23 1431 1436 Metoprolol Tartrate 0 .STK-MED ONE 03/23 1416 DC IV Metoprolol Tartrate 12.5 MG ONCE ONE 03/23 1345 DC 03/23 PO 03/23 1346 1347 Metoprolol Tartrate 0 .STK-MED ONE 03/23 1344 DC PO Nitroglycerin 0.5 GM ONCE ONE 03/23 2215 DC TOP 03/23 2216 Nitroglycerin 0 .STK-MED ONE 03/23 1533 DC TOP Nitroglycerin 0.5 GM ONCE ONE 03/23 1530 DC TOP 03/23 1531 1552 Nitroglycerin 0.4 MG ONCE ONE 03/23 1400 DC / SL 03/23 1401 1402 Ondansetron HCl 4 MG ONCE ONE 03/23 1415 DC /16 IV 03/23 1416 1415 Ondansetron HCl 0 .STK-MED ONE 03/23 1412 DC .ROUTE Sodium Chloride 500 ML BOLUS ONE 03/23 1545 DC / IV 03/23 1904 1553 Trimethobenzamide HCl 200 MG ONCE PRN 03/23 1730 DC IM 03/23 2300 Impression/Plan Impression/Problem List Impression: 62-year-old woman with h/o HTN, HL, anxiety, s/p partial thyroidectomy, & GERD current admission for substernal chest pain of 4 days duration. Assessment and plan: Chest Pain - with positive troponins and ST depression on EKG c/w NSTEMI. AMISH score 2. Troponins trending upward- 2.36-3.46->6.57->4.94->5.11-->5.86. Will continue to trend. EKG shows T wave inversion in V1-V6 Continue in ICU Continue IV heparin,Atorvastatin, ASA Per cardio will load her with Brillanta, and continue brillanta at 90 mg bid NPO at midnight for cardiac cath in the morning. ECHO done today, report pending Discussed with building construction supervisor cardiolgist regarding her chest pain today. In view of her hypotension will give sl Nitro and IV morphine based on her blood pressure. HTN- BP systolic 90s-100s on Amlodipine/Benzapril at home will hold this for now. Hyperlipidemia Continue Atorvastatin. Depression Continue Sertraline. GERD Continue Omeprazole HEART healthy diet, NPO at midnight DVT ppx IV heparin full code Problem List: 1. Non-STEMI (non-ST elevated myocardial infarction) Pain Ratin Tomorrow's Labs & Rationales: cbc/ICU panel Plan DVT/Prophylaxis: pharmacological Code Status: Full Code
--- NOTE | 2018-03-24 10:57 | Cons- Cardiology ---
General Information and HPI Consulting Request Date of Consult: 03/24/18 Requested By: Lloyd Andino MD Reason for Consult: Myocardial infarction Source of Information: patient, family History of Present Illness: This is a pleasant 62-year-old female with a past medical history of hyperlipidemia, hypertension, remote tobacco use, anxiety, and recent partial thyroidectomy for papillary thyroid cancer who presents to [facility] with a chief complaint of intermittent moderate to severe intensity chest discomfort over the last 4 days; initially was exertional in nature and relieved with rest; did have radiation into the shoulders; she did reports an episode of diaphoresis along with dizziness and nausea. She denies any history of ischemic heart disease and believes she had a normal stress test some years ago. On my interview with her in the intensive care unit she was currently asymptomatic. She denied any slurring of speech, syncope, bleeding, orthopnea, or paroxysmal nocturnal dyspnea. Allergies/Medications Allergies: Coded Allergies: No Known Allergies (03/23/18) Home Med List: Amlodipine Besylate/Benazepril (Lotrel 5-20 MG Capsule) 5 MG-20 MG CAPSULE 1 CAP PO DAILY HTN (Reported) Atorvastatin Calcium (Lipitor) 40 MG TABLET 1 TAB PO DAILY HLD (Reported) Heparin Sodium,Porcine/D5w (Heparin-D5w 25,000 Unit/500 Ml) 25,000 UNIT/500 ML ( 50 UNIT/ML) IV.SOLN 0 IV SEE ADMIN CRITERIA Anti Coagulation To be administered based on protocol Metoprolol Tartrate 25 MG TABLET 1 TAB PO DAILY heart Health Pantoprazole Sodium 40 MG TABLET.DR 1 TAB PO DAILY gerd (Reported) Sertraline HCl (Zoloft) 100 MG TABLET 1 TAB PO DAILY ANXIETY (Reported) Current Medications: Current Medications Sig/Vern Start time Last Medication Dose Route Stop Time Status Admin Acetaminophen 650 MG Q4P PRN 03/24 0945 AC 03/24 PO 0947 Acetaminophen 1,000 MG ONCE ONE 03/24 0100 DC 03/24 N/A 1 UNIT IV 03/24 0114 0059 Acetaminophen 0 .STK-MED ONE 03/23 1738 DC PO Alprazolam 0.5 MG ONCE ONE 03/23 2345 DC 03/23 PO 03/23 2346 2354 Aspirin 81 MG DAILY 03/23 2230 AC 03/24 PO 0902 Aspirin 81 MG ONCE ONE 03/23 1345 DC 03/23 PO 03/23 1346 1347 Aspirin 0 .STK-MED ONE 03/23 1344 DC PO Atorvastatin Calcium 80 MG 1700 03/23 1745 AC 03/23 PO 1959 Dextrose/Water 1,000 ML Q13H 03/24 0930 DC 03/24 IV 03/24 2229 0947 Enoxaparin Sodium 70 MG BID 03/23 2100 CAN SC Enoxaparin Sodium 0 .STK-MED ONE 03/23 1533 DC SC Enoxaparin Sodium 0 .STK-MED ONE 03/23 1533 DC SC Enoxaparin Sodium 70 MG BID 03/23 1434 DC SC Heparin Sodium 4,300 UNIT ONCE ONE 03/24 0745 DC 03/24 (Porcine) IV 03/24 0746 0750 Heparin Sodium 0 .STK-MED ONE 03/23 1649 DC (Porcine) .ROUTE Heparin Sodium 4,000 UNIT ONCE ONE 03/23 1645 DC 03/23 (Porcine) IV 03/23 1646 1652 Heparin Sodium/ 25,000 UNIT Q24H 03/23 1615 03/23 Dextrose IV 1652 Dextrose/Water 500 ML Lorazepam 0.5 MG ONCE PRN 03/23 1730 DC IV 03/23 2300 Metoprolol Tartrate 25 MG ONCE ONE 03/23 2230 RI 03/23 PO 03/23 2231 2251 Metoprolol Tartrate 5 MG ONCE ONE 03/23 1430 DC 03/23 IV 03/23 1431 1436 Metoprolol Tartrate 0 .STK-MED ONE 03/23 1416 DC IV Metoprolol Tartrate 12.5 MG ONCE ONE 03/23 1345 DC 03/23 PO 03/23 1346 1347 Metoprolol Tartrate 0 .STK-MED ONE 03/23 1344 DC PO Nitroglycerin 0.5 GM ONCE ONE 03/23 2215 DC TOP 03/23 2216 Nitroglycerin 0 .STK-MED ONE 03/23 1533 DC TOP Nitroglycerin 0.5 GM ONCE ONE 03/23 1530 DC 03/23 TOP 03/23 1531 1552 Nitroglycerin 0.4 MG ONCE ONE 03/23 1400 DC 03/23 SL 03/23 1401 1402 Ondansetron HCl 4 MG ONCE ONE 03/23 1415 DC 03/23 IV 03/23 1416 1415 Ondansetron HCl 0 .STK-MED ONE 03/23 1412 DC .ROUTE Sertraline HCl 100 MG DAILY 03/24 0932 AC PO Sodium Chloride 500 ML BOLUS ONE 03/23 1545 DC 03/23 IV 03/23 1904 1553 Ticagrelor 75 MG DAILY 03/25 0900 UNVr PO Ticagrelor 180 MG ONCE ONE 03/24 1030 DC PO 03/24 1031 Trimethobenzamide HCl 200 MG ONCE PRN 03/23 1730 DC IM 03/23 2300 Review of Systems Review of Systems: Review of systems as per HPI. The remainder of a 10 point review of systems was reviewed and was otherwise negative. Past History Travel History Traveled to [place] past 21 day No Medical History Blood Transfusion Hx: No Neurological: NONE EENT: NONE Cardiovascular: hypertension, hyperlipidemia Respiratory: NONE Gastrointestinal: GERD Hepatic: NONE Renal: NONE Musculoskeletal: NONE Psychiatric: anxiety Endocrine: PARTIAL THYROIDECTOMY Blood Disorders: NONE Cancer(s): NONE HOUSEKEEPING ASSOCIATE/Reproductive: NONE Surgical History Surgical History: L PARTIAL THYROIDECTOMY CHOLECYSECTOMY Psychosocial History Where Do You Live? Home Smoking Status: Former Smoker Exam & Diagnostic Data Vital Signs and I&O Vital Signs Date Time Temp Pulse Resp B/P B/P Pulse O2 O2 Flow FiO2 Mean Ox Delivery Rate 03/24 0800 98 Nasal 2.0L Cannula 03/24 0800 97.2 79 30 92/60 98 Nasal 2.0L Cannula 03/24 0400 95 Nasal 2.0L Cannula 03/24 0000 95 Nasal 2.0L Cannula 03/24 0000 97.9 75 20 122/64 95 Nasal 2.0L Cannula 03/23 2251 75 101/55 03/23 2000 98 Nasal Cannula 03/23 1830 97 Nasal 2.0L Cannula 03/23 1830 98.2 89 18 102/60 97 Nasal 2.0L Cannula 03/23 1650 80 18 120/82 99 Nasal 2.0L Cannula 03/23 1625 84 18 104/62 99 Nasal 2.0L Cannula 03/23 1600 84 18 112/68 99 Nasal 2.0L Cannula 03/23 1535 84 18 106/70 97 Room Air 03/23 1436 80 117/71 03/23 1436 77 18 108/71 98 Room Air 03/23 1356 80 117/71 03/23 1347 96 147/90 03/23 1305 97.6 96 16 147/90 95 Room Air Intake & Output 03/24 1600 03/24 0800 03/24 0000 03/23 1600 03/23 0800 03/23 0000 Intake Total 137.2 632.7 Output Total 200 Balance 137.2 432.7 Intake, IV 87.2 602.7 Intake, Oral 50 30 Output, Urine 200 Patient 157 lb 150 lb Weight Weight Bed scale Measurement Method Physical Exam: General: no apparent distress. Alert. Eyes: No obvious scleral icterus. HEENT: No jugular venous distention or abnormal jugular venous pulsations. Cardiovascular: Normal intensity S1/S2. PMI not grossly displaced. Respiratory: Lungs clear to auscultation bilaterally. Abdomen: Soft, nontender with no guarding or rebound tenderness. Musculoskeletal: No clubbing or cyanosis noted Skin: warm Neurologic: No gross focal deficits noted. Lymph: No gross lymphadenopathy. Labs/Baudilio Results: Laboratory Tests 03/24 03/24 03/24 0630 0630 0230 Chemistry Sodium (137 - 145 mmol/L) 140 Potassium (3.5 - 5.1 mmol/L) 4.1 Chloride (98 - 107 mmol/L) 107 Carbon Dioxide (22 - 30 mmol/L) 25 Anion Gap (5 - 16) 9 BUN (7 - 17 mg/dL) 15 Creatinine (0.5 - 1.0 mg/dL) 0.6 Estimated GFR (>60 ml/min) > 60 BUN/Creatinine Ratio (7 - 25 %) 25.0 Magnesium (1.6 - 2.3 mg/dL) 2.0 Troponin I (< 0.11 ng/ml) 5.11 *H 4.94 *H Coagulation APTT (25 - 37 SEC) 42 H Hematology CBC w Diff NO MAN DIFF REQ WBC (4.8 - 10.8 /CUMM) 8.0 RBC (4.20 - 5.40 /CUMM) 4.60 Hgb (12.0 - 16.0 G/DL) 13.6 Hct (37 - 47 %) 40.8 MCV (81.0 - 99.0 FL) 88.7 MCH (27.0 - 31.0 PG) 29.5 MCHC (33.0 - 37.0 G/DL) 33.3 RDW (11.5 - 14.5 %) 13.9 Plt Count (130 - 400 /CUMM) 190 MPV (7.4 - 10.4 FL) 11.2 H Gran % (42.2 - 75.2 %) 69.9 Lymphocytes % (20.5 - 51.1 %) 22.8 Monocytes % (1.7 - 9.3 %) 5.6 Eosinophils % (0 - 5 %) 1.2 Basophils % (0.0 - 2.0 %) 0.5 Absolute Granulocytes (1.4 - 6.5 /CUMM) 5.6 Absolute Lymphocytes (1.2 - 3.4 /CUMM) 1.8 Absolute Monocytes (0.10 - 0.60 /CUMM) 0.5 Absolute Eosinophils (0.0 - 0.7 /CUMM) 0.1 Absolute Basophils (0.0 - 0.2 /CUMM) 0 03/23 03/23 03/23 2305 2055 1545 Chemistry Troponin I (< 0.11 ng/ml) 6.57 *H 3.46 *H Coagulation APTT (25 - 37 SEC) 107 *H 03/23 03/23 1321 1307 Chemistry Sodium (137 - 145 mmol/L) 143 Potassium (3.5 - 5.1 mmol/L) 4.1 Chloride (98 - 107 mmol/L) 104 Carbon Dioxide (22 - 30 mmol/L) 28 Anion Gap (5 - 16) 11 BUN (7 - 17 mg/dL) 15 Creatinine (0.5 - 1.0 mg/dL) 0.7 Estimated GFR (>60 ml/min) > 60 BUN/Creatinine Ratio (7 - 25 %) 21.4 Glucose (65 - 99 mg/dL) 104 H Calcium (8.4 - 10.2 mg/dL) 9.7 Magnesium (1.6 - 2.3 mg/dL) 2.0 Total Bilirubin (0.2 - 1.3 mg/dL) 0.6 AST (14 - 36 U/L) 56 H ALT (9 - 52 U/L) 33 Alkaline Phosphatase (<127 U/L) 117 Troponin I (< 0.11 ng/ml) 2.36 *H Total Protein (6.3 - 8.2 g/dL) 7.7 Albumin (3.5 - 5.0 g/dL) 4.4 Globulin (1.9 - 4.2 gm/dL) 3.3 Albumin/Globulin Ratio (1.1 - 2.2 %) 1.3 Triglycerides (<150 mg/dL) 93 Cholesterol (<200 MG/DL) 204 H LDL Cholesterol, Calc (65 - 129 mg/dL) 120 HDL Cholesterol (40 - 60 mg/dL) 66 H Cholesterol/HDL Ratio (0.00 - 4.23 %) 3 TSH (0.270 - 4.200 uIU/mL) 5.520 H Free T4 (0.78 - 2.44 ng/dL) 0.97 Coagulation PT (9.4 - 12.5 SEC) 10.8 INR (0.90 - 1.19) 0.99 APTT (25 - 37 SEC) 31 Hematology CBC w Diff NO MAN DIFF REQ WBC (4.8 - 10.8 /CUMM) 8.8 RBC (4.20 - 5.40 /CUMM) 4.95 Hgb (12.0 - 16.0 G/DL) 14.5 Hct (37 - 47 %) 43.7 MCV (81.0 - 99.0 FL) 88.3 MCH (27.0 - 31.0 PG) 29.4 MCHC (33.0 - 37.0 G/DL) 33.2 RDW (11.5 - 14.5 %) 13.9 Plt Count (130 - 400 /CUMM) 221 MPV (7.4 - 10.4 FL) 10.1 Gran % (42.2 - 75.2 %) 81.6 H Lymphocytes % (20.5 - 51.1 %) 13.5 L Monocytes % (1.7 - 9.3 %) 3.9 Eosinophils % (0 - 5 %) 0.8 Basophils % (0.0 - 2.0 %) 0.2 Absolute Granulocytes (1.4 - 6.5 /CUMM) 7.2 H Absolute Lymphocytes (1.2 - 3.4 /CUMM) 1.2 Absolute Monocytes (0.10 - 0.60 /CUMM) 0.3 Absolute Eosinophils (0.0 - 0.7 /CUMM) 0.1 Absolute Basophils (0.0 - 0.2 /CUMM) 0 Diagnostic Data EKG Results Tracing was personally reviewed and shows sinus rhythm with nonspecific STT abnormality CXR Results 1. Cardiac silhouette is borderline normal in size. 2. Mild ectasia and tortuosity of the aorta is seen. 3. Lung findings are consistent with obstructive lung disease. Clinical correlation requested. Other Results Telemetry tracings were personally reviewed and shows sinus rhythm Assessment/Plan Assessment/Plan 1. Acute non-ST elevation myocardial infarction 2. Hypertension 3. Hyperlipidemia 4. Recent partial thyroidectomy/papillary thyroid cancer 5. Angina 6. Abnormal EKG The patient's anginal symptoms with elevated troponin and abnormal EKG are consistent with acute type I non-ST elevation myocardial infarction. Continue aspirin and high-dose statin therapy along with intravenous heparin drip. Hold any additional doses of beta-ed given the borderline blood pressure this morning which can decrease coronary perfusion pressure. Will initiate Brilinta. We discussed the risks versus benefits of additional treatment options at length and she would like to proceed with cardiac catheterization; keep n.p.o. after midnight and will plan transfer to [facility] tomorrow for cardiac catheterization with likely PCI. Continue to follow serial troponins until they begin to decrease. We will follow-up echocardiogram. Maintain on telemetry. Case was discussed at length with the patient, family, and the admitting medical team. Hubert River MD [facility] Consult Acknowledgment - Thank you for your consult request.
[2018-03-24 14:07] LABS: PTT 112 SEC (25-37)
[2018-03-24 16:00] VITALS: BP 118/60
--- NOTE | 2018-03-24 19:07 | ECHOCARDIOGRAM REPORT ---
KEYANNA KULKARNI Age: 62 : 1955 Gender: F Exam Date: 03/24/2018 08:14 Exam Location: [facility] Ht (in): 61 Wt (lb): 150 BSA: 1.73 BP: 122 / 64 Ordering Physician: Anne Marie Shultz MD Referring Physician: Jeffery River M.D. Technologist: Kathleen Hsu LUI Room Number: 110 Indications: CHEST PAIN Rhythm: Technical Quality: Fair FINDINGS Left Ventricle Left ventricular cavity size normal. Normal left ventricular wall thickness. There is severe hypokinesis of the mid to distal anterior/anteroseptal wall. Left ventricular ejection fraction is estimated at 45 %. Right Ventricle Normal right ventricular size and function. Right Atrium Normal right atrial size. Left Atrium Normal left atrial size. Mitral Valve Mild mitral annular calcification. [id number] mitral regurgitation. Aortic Valve No aortic stenosis. Trileaflet aortic valve. Tricuspid Valve Structurally normal tricuspid valve. Mild tricuspid regurgitation. Unable to estimate the right ventricular systolic pressure. Pulmonic Valve Pulmonic valve not well visualized. Pericardium Prominent epicardial fat. Minimal pericardial effusion. Great Vessels Normal size aortic root. CONCLUSIONS Left ventricular cavity size normal. Normal left ventricular wall thickness. There is severe hypokinesis of the mid to distal anterior/anteroseptal wall. Left ventricular ejection fraction is estimated at 45 %. Normal right ventricular size and function. [id number] mitral regurgitation. Unable to estimate the right ventricular systolic pressure. Minimal pericardial effusion. Jeffery River M.D. (Electronically Signed) Final Date: 24 March 2018 19:06 MEASUREMENTS (Male / Female) Normal Values 2D ECHO LV Diastolic Diameter PLAX 3.3 cm 4.2 - 5.9 / 3.9 - 5.3 cm LV Systolic Diameter PLAX 2.2 cm 2.1 - 4.0 cm LV Fractional Shortening PLAX 33.3 % 25 - 46 % LV Ejection Fraction 2D Teich 63.3 % IVS Diastolic Thickness 1.0 cm LVPW Diastolic Thickness 1.0 cm LV Relative Wall Thickness 0.6 RV Internal Dim ED PLAX 2.2 cm 1.9 - 3.8 cm LVOT Diameter 1.9 cm Aortic Root Diameter 2.6 cm LA Systolic Diameter LX 3.2 cm 3.0 - 4.0 / 2.7 - 3.8 cm LA Volume 25.0 cm 18 - 58 / 22 - 52 cm Ascending Aorta Diameter 3.0 cm DOPPLER AV Peak Velocity 101.0 cm/s AV Peak Gradient 4.1 mmHg AV Mean Velocity 68.7 cm/s AV Mean Gradient 2.0 mmHg AV Velocity Time Integral 21.2 cm LVOT Peak Velocity 86.5 cm/s LVOT Peak Gradient 3.0 mmHg LVOT Mean Velocity 58.4 cm/s LVOT Mean Gradient 2.0 mmHg LVOT Velocity Time Integral 17.1 cm LVOT Stroke Volume 48.5 cm AV Area Cont Eq vti 2.3 cm AV Area Cont Eq pk 2.4 cm MV Peak Velocity 87.8 cm/s MV Peak Gradient 3.1 mmHg MV Mean Velocity 55.1 cm/s MV Mean Gradient 1.0 mmHg Mitral E Point Velocity 73.1 cm/s Mitral A Point Velocity 40.5 cm/s Mitral E to A Ratio 1.8 MV PHT Velocity 96.0 cm/s MV Deceleration [place] 477.0 cm/s MV Pressure Half Time 60.4 ms MV Area PHT 3.6 cm MV Deceleration Time 206.0 ms MR Peak Velocity 469.0 cm/s MR Peak Gradient 88.0 mmHg MR ERO PISA 0.2 cm MR Regurgitant Volume PISA 26.7 cm TR Peak Velocity 303.0 cm/s TR Peak Gradient 36.7 mmHg Right Atrial Pressure 5.0 mmHg Pulmonary Artery Systolic Pressu 41.7 mmHg Right Ventricular Systolic Press 41.7 mmHg PV Peak Velocity 71.1 cm/s PV Peak Gradient 2.0 mmHg PV Mean Velocity 50.6 cm/s PV Mean Gradient 1.0 mmHg PV Velocity Time Integral 13.2 cm LV E' Lateral Velocity 9.6 cm/s Mitral E to LV E' Lateral Ratio 7.6 LV E' Septal Velocity 7.5 cm/s Mitral E to LV E' Septal Ratio 9.8
[2018-03-24 21:04] LABS: PTT 37 SEC (25-37)
[2018-03-25] VITALS: BP 108/70
[2018-03-25 05:03] LABS: ABSOLUTE BASOPHIL COUNT 0 /CUMM (0.0-0.2); ABSOLUTE EOSINOPHIL COUNT 0 /CUMM (0.0-0.7); ABSOLUTE GRANULOCYTE CT 6.7 /CUMM (1.4-6.5); ABSOLUTE LYMPH COUNT 1.1 /CUMM (1.2-3.4); ABSOLUTE MONOCYTE COUNT 0.5 /CUMM (0.10-0.60); BASOPHIL % 0.3 % (0.0-2.0); EOSINOPHIL % 0.3 % (0-5); GRANULOCYTE % 80.2 % (42.2-75.2); HEMATOCRIT 36.4 % (37-47); MEAN CORPUSCULAR HGB 29.8 PG (27.0-31.0); MEAN CORPUSCULAR HGB CONC 34.2 G/DL (33.0-37.0); MEAN CORPUSCULAR VOLUME 87.1 FL (81.0-99.0); MEAN PLATELET VOLUME 11.1 FL (7.4-10.4); PLATELET COUNT 159 /CUMM (130-400); RBC DISTRIBUTION WIDTH 13.8 % (11.5-14.5); RED BLOOD CELL CT 4.18 /CUMM (4.20-5.40); WHITE BLOOD CELL COUNT 8.3 /CUMM (4.8-10.8)
[2018-03-25 05:08] LABS: PTT 92 SEC (25-37)
--- NOTE | 2018-03-25 07:12 | PN- Resident CRCU ---
Laron Clark 03/25/18 0712: Subjective HPI/CRCU Issues: NSTEMI 24 Hour Events: Patient seen and examined his reported that overnight the patient was very anxious reporting chest heaviness but no overt chest pain. She told me this morning while she is very anxious and worried about the procedure I tried to explain to her what it is and try to calm her down. She would like to know what time she is going and which hospital because her will be meeting her there. Objective Vital Signs & I&O Last 8 Hrs of Vitals and I&O: Vital Signs Date Time Temp Pulse Resp B/P B/P Pulse O2 O2 Flow FiO2 Mean Ox Delivery Rate 03/25 0800 99 Nasal 2.0L Cannula 03/25 0800 97.9 101 27 110/78 99 Nasal 2.0L Cannula 03/25 0416 95 Nasal 2.0L Cannula 03/25 0000 97 Nasal 2.0L Cannula 03/25 0000 98.4 112 16 108/70 97 Nasal 2.0L Cannula 03/24 2000 97 Nasal 2.0L Cannula 03/24 1600 98 Nasal 2.0L Cannula 03/24 1600 98.2 96 32 118/60 98 Nasal 2.0L Cannula Intake & Output 03/25 1600 Intake Total Output Total Balance Patient 155 lb Weight Exam General Appearance: well developed/nourished, no apparent distress, alert, awake Head: atraumatic, normal appearance, active bleeding Ears, Nose, Throat: normal pharynx Neck: normal inspection, supple Respiratory: normal breath sounds, chest non-tender, no respiratory distress, lungs clear Cardiovascular: regular rate/rhythm Gastrointestinal: normal bowel sounds, soft, non-tender Extremities: normal inspection, normal capillary refill Cranial Nerves: normal hearing, normal speech Skin: normal color Skin Temp/Moisture Exam: Warm/Dry Sepsis Skin Exam (color): Normal for Ethnicity Nutrition Nutrition: NPO Current Medications: Current Medications Sig/Vern Start time Last Medication Dose Route Stop Time Status Admin Acetaminophen 1,000 MG ONCE ONE 03/24 2330 DC 03/24 N/A 1 UNIT IV 03/24 2344 2331 Acetaminophen 650 MG Q4P PRN 03/24 0945 AC 03/24 PO 0947 Alprazolam 0.5 MG ONCE ONE 03/24 2200 DC 03/24 PO 03/24 2201 2155 Alprazolam 0.5 MG ONCE ONE 03/24 1545 DC 03/24 PO 03/24 1546 1650 Aspirin 81 MG DAILY 03/23 2230 AC 03/25 PO 0911 Atorvastatin Calcium 80 MG 1700 03/23 1745 AC 03/24 PO 1650 Fentanyl Citrate 50 MCG ONCE ONE 03/24 1745 CAN IV 03/24 1746 Heparin Sodium 5,000 UNIT .STK-MED ONE 03/24 2141 DC (Porcine) IV 03/24 2142 Heparin Sodium 4,300 UNIT ONCE ONE 03/24 2130 DC 03/24 (Porcine) IV 03/24 2131 2144 Heparin Sodium/ 25,000 UNIT Q24H 03/23 1615 AC 03/23 Dextrose IV 1652 Dextrose/Water 500 ML Morphine Sulfate 4 MG .STK-MED ONE 03/24 2354 DC IM 03/24 2355 Morphine Sulfate 2 MG ONCE ONE 03/24 2345 DC 03/24 IV 03/24 2346 2358 Nitroglycerin 0.4 MG ONCE ONE 03/24 2345 DC 03/24 SL 03/24 2346 2349 Nitroglycerin 0.4 MG ONCE ONE 03/24 1815 DC 03/24 SL 03/24 1816 1823 Nitroglycerin 0.4 MG ONCE ONE 03/24 1330 DC 03/24 SL 03/24 1331 1328 Ondansetron HCl 4 MG ONCE ONE 03/24 1815 DC 03/24 IV 03/24 1816 1822 Potassium Chloride 60 MEQ ONCE ONE 03/25 0745 DC 03/25 PO 03/25 0746 0911 Sertraline HCl 100 MG DAILY 03/24 0932 AC 03/25 PO 0911 Ticagrelor 75 MG DAILY 03/25 0900 CAN PO Ticagrelor 90 MG BID 03/25 0900 03/25 PO 0911 ECHO Findings: Ejection fraction 45% with wall hypokinesis Impression/Plan Impression/Problem List Impression: 62-year-old woman with h/o HTN, HL, anxiety, s/p partial thyroidectomy, & GERD who was admitted for substernal chest pain of 4 days duration. Had elevated troponin that peaked at 6.57 Assessment and plan: Chest Pain - with positive troponins and ST depression on EKG c/w NSTEMI. AMISH score 2. Troponins trending upward- 2.36-3.46->6.57->4.94->5.11-->5.86 highest value 6.57 before decreasing. Continue IV heparin,Atorvastatin, ASA Per cardio will load her with Brillanta, and continue brillanta at 90 mg bid Patient transferred this morning to [facility] for cardiac catheterization by burning machine operator Dr. Lui and receiving physician Dr. Martinez HTN- BP remained stable overnight. Patient is being discharged on her home dose of antihypertensive medications. Hyperlipidemia Continue Atorvastatin. Advised on low-fat diet Depression Continue Sertraline. GERD Continue Omeprazole CODE STATUS full code Problem List: 1. Non-STEMI (non-ST elevated myocardial infarction) Pain Ratin Pain Location: Chest Tomorrow's Labs & Rationales: None patient's been transferred Plan DVT/Prophylaxis: pharmacological Code Status: Full Code Lloyd Andino MD 03/25/18 0852: Attending MD Review Statement Attending Sign Off Attending Cosign Statement: I have: examined this patient, reviewed aval EMR data, personally reviewd images, discussd w/resident/PA/CRISIS COUNSELOR, discussed mgmt plan w/CM, discussed mgmt plan w/pt, agreed w/resident/PA/CRISIS COUNSELOR, amended to note. Other Findings: The patient was seen and discussed with residents and case management. To be transferred for cardiac catheterization at [facility] in [place]. Chart being prepared.
[2018-03-25] MEDS ORDERED: ATORVASTATIN CA80 M1 PO (07:29)
[2018-03-25] MEDS ORDERED: BRILINTA90 M1 PO (07:29)
[2018-03-25 08:00] VITALS: BP 110/78
--- NOTE | 2018-03-25 10:28 | PN- Cardiology ---
Subjective Subjective: Doing well this morning. Had some recurrent chest discomfort yesterday but no recurrence this morning. Objective Vital Signs and I&Os Vital Signs Date Time Temp Pulse Resp B/P B/P Pulse O2 O2 Flow FiO2 Mean Ox Delivery Rate 03/25 0800 99 Nasal 2.0L Cannula 03/25 0800 97.9 101 27 110/78 99 Nasal 2.0L Cannula 03/25 0416 95 Nasal 2.0L Cannula 03/25 0000 97 Nasal 2.0L Cannula 03/25 0000 98.4 112 16 108/70 97 Nasal 2.0L Cannula 03/24 2000 97 Nasal 2.0L Cannula 03/24 1600 98 Nasal 2.0L Cannula 03/24 1600 98.2 96 32 118/60 98 Nasal 2.0L Cannula Intake & Output 03/25 1600 03/25 0800 03/25 0000 03/24 1600 03/24 0800 03/24 0000 Intake Total 128 413 500 137.2 632.7 Output Total 200 350 200 Balance 128 213 150 137.2 432.7 Intake, IV 128 93 160 87.2 602.7 Intake, Oral 320 340 50 30 Output, Urine 200 350 200 Patient 155 lb 157 lb Weight Weight Bed scale Measurement Method Physical Exam: General: no apparent distress. Alert. Eyes: No obvious scleral icterus. HEENT: No jugular venous distention or abnormal jugular venous pulsations. Cardiovascular: Normal intensity S1/S2. PMI not grossly displaced. Respiratory: Lungs clear to auscultation bilaterally. Abdomen: Soft, nontender with no guarding or rebound tenderness. Musculoskeletal: No clubbing or cyanosis noted Skin: warm Neurologic: No gross focal deficits noted. Lymph: No gross lymphadenopathy. Current Medications: Current Medications Sig/Vern Start time Last Medication Dose Route Stop Time Status Admin Acetaminophen 1,000 MG ONCE ONE 03/24 2330 DC 03/24 N/A 1 UNIT IV 03/24 2344 2331 Acetaminophen 650 MG Q4P PRN 03/24 0945 03/24 PO 0947 Alprazolam 0.5 MG ONCE ONE 03/240 DC 03/24 PO 03/24 220 2155 Alprazolam 0.5 MG ONCE ONE 03/24 1545 DC 03/24 PO 03/24 1546 1650 Aspirin 81 MG DAILY 03/23 2230 03/25 PO 0911 Atorvastatin Calcium 80 MG 1700 03/23 1745 AC 03/24 PO 1650 Dextrose/Water 1,000 ML Q13H 03/24 0930 DC 03/24 IV 03/24 2229 0947 Fentanyl Citrate 50 MCG ONCE ONE 03/24 1745 CAN IV 03/24 1746 Heparin Sodium 5,000 UNIT .STK-MED ONE 03/24 2141 DC (Porcine) IV 03/24 2142 Heparin Sodium 4,300 UNIT ONCE ONE 03/24 2130 DC 03/24 (Porcine) IV 03/24 2131 2144 Heparin Sodium/ 25,000 UNIT Q24H 03/23 1615 AC 03/23 Dextrose IV 1652 Dextrose/Water 500 ML Morphine Sulfate 4 MG .STK-MED ONE 03/24 2354 DC IM 03/24 2355 Morphine Sulfate 2 MG ONCE ONE 03/24 2345 DC 03/24 IV 03/24 2346 2358 Nitroglycerin 0.4 MG ONCE ONE 03/24 2345 DC 03/24 SL 03/24 2346 2349 Nitroglycerin 0.4 MG ONCE ONE 03/24 1815 DC 03/24 SL 03/24 1816 1823 Nitroglycerin 0.4 MG ONCE ONE 03/24 1330 DC 03/24 SL 03/24 1331 1328 Ondansetron HCl 4 MG ONCE ONE 03/24 1815 DC 03/24 IV 03/24 1816 1822 Potassium Chloride 60 MEQ ONCE ONE 03/25 0745 DC 03/25 PO 03/25 0746 0911 Sertraline HCl 100 MG DAILY 03/24 0932 AC 03/25 PO 0911 Ticagrelor 75 MG DAILY 03/25 0900 CAN PO Ticagrelor 90 MG BID 03/25 0900 AC 03/25 PO 0911 Ticagrelor 180 MG ONCE ONE 03/24 1030 DC 03/24 PO 03/24 1031 1139 Results Last 48 Hrs of Labs/Mics: Laboratory Tests 03/25/18 0400: Anion Gap 7, Estimated GFR > 60, Glucose 112 H, Calcium 8.5, Phosphorus 3.6, Magnesium 1.8, Total Bilirubin 0.7, AST 102 H, ALT 39, Albumin 3.3 L, APTT 92 H, CBC w Diff NO MAN DIFF REQ, RBC 4.18 L, MCV 87.1, MCH 29.8, MCHC 34.2, RDW 13.8, MPV 11.1 H, Gran % 80.2 H, Lymphocytes % 13.4 L, Monocytes % 5.8, Eosinophils % 0.3, Basophils % 0.3, Absolute Granulocytes 6.7 H, Absolute Lymphocytes 1.1 L, Absolute Monocytes 0.5, Absolute Eosinophils 0, Absolute Basophils 0 03/24/18 2000: APTT 37 03/24/18 1900: APTT Cancelled 03/24/18 1806: Troponin I 4.96 *H 03/24/18 1300: Troponin I 5.86 *H, APTT 112 *H 03/24/18 0630: Troponin I 5.11 *H 03/24/18 0630: Anion Gap 9, Estimated GFR > 60, BUN/Creatinine Ratio 25.0, Magnesium 2.0, APTT 42 H, CBC w Diff NO MAN DIFF REQ, RBC 4.60, MCV 88.7, MCH 29.5, MCHC 33.3, RDW 13.9, MPV 11.2 H, Gran % 69.9, Lymphocytes % 22.8, Monocytes % 5.6, Eosinophils % 1.2, Basophils % 0.5, Absolute Granulocytes 5.6, Absolute Lymphocytes 1.8, Absolute Monocytes 0.5, Absolute Eosinophils 0.1, Absolute Basophils 0 03/24/18 0230: Troponin I 4.94 *H 03/23/18 2305: APTT 107 *H 03/23/18 2055: Troponin I 6.57 *H 03/23/18 1545: Troponin I 3.46 *H 03/23/18 1321: Anion Gap 11, Estimated GFR > 60, BUN/Creatinine Ratio 21.4, Glucose 104 H, Calcium 9.7, Magnesium 2.0, Total Bilirubin 0.6, AST 56 H, ALT 33, Alkaline Phosphatase 117, Troponin I 2.36 *H, Total Protein 7.7, Albumin 4.4, Globulin 3.3, Albumin/Globulin Ratio 1.3, Triglycerides 93, Cholesterol 204 H, LDL Cholesterol, Calc 120, HDL Cholesterol 66 H, Cholesterol/HDL Ratio 3, TSH 5.520 H, Free T4 0.97, CBC w Diff NO MAN DIFF REQ, RBC 4.95, MCV 88.3, MCH 29.4, MCHC 33.2, RDW 13.9, MPV 10.1, Gran % 81.6 H, Lymphocytes % 13.5 L, Monocytes % 3.9 , Eosinophils % 0.8, Basophils % 0.2, Absolute Granulocytes 7.2 H, Absolute Lymphocytes 1.2, Absolute Monocytes 0.3, Absolute Eosinophils 0.1, Absolute Basophils 0 03/23/18 1307: PT 10.8, INR 0.99, APTT 31 Microbiology 03/23 1813 UPPER RESP: Surveillance Culture - COMP 03/23 1813 GI: Surveillance Culture - COMP Recent Imaging Studies: Telemetry tracings were personally reviewed and shows sinus rhythm Echo Left ventricular cavity size normal. Normal left ventricular wall thickness. There is severe hypokinesis of the mid to distal anterior/anteroseptal wall. Left ventricular ejection fraction is estimated at 45 %. Normal right ventricular size and function. [id number] mitral regurgitation. Unable to estimate the right ventricular systolic pressure. Minimal pericardial effusion. Jeffery River M.D. (Electronically Signed) Final Date: 24 March 2018 19:06 Assessment/Plan Assessment/Plan 1. Acute non-ST elevation myocardial infarction with anterior wall motion abnormality by echocardiogram; EF 45% 2. Hypertension 3. Hyperlipidemia 4. Recent partial thyroidectomy/papillary thyroid cancer 5. Angina 6. Abnormal EKG Patient is currently hemodynamically stable without recurrent chest discomfort this morning. Echocardiogram as above shows anterior wall motion abnormality and overall mildly depressed left ventricular ejection fraction; hopefully we will see full functional recovery status post revascularization. Continue on dual antiplatelet therapy, high-dose statin, and intravenous heparin. She remains n.p.o. today and will be transferred to [facility] for cardiac catheterization with likely PCI. Hubert River MD [facility] Continue telemetry? Yes
== END 2018-03-25 10:30 | disposition short-term general hospital (02) | DRG 282 ==
LOC: ERH 12:50 → CRI 14:47 → ERHI 14:47 → ENRESERV 15:48 → CANRESERV 15:48 → EDBEDREQ 16:51 → ERHI 16:52 → ENRESERV 16:56 → ENTRNSPT 17:20 → CRI 18:06 → CMPTRNSPT 03-24 10:07 → CRI 03-25 10:30
PROVIDERS: Emergency Medicine; Internal Medicine; Internal Medicine Infectious Disease; Student in an Organized Health Care Education/Training Program
DX: I21.4 Non-ST elevation (NSTEMI) myocardial infarction (principal); E78.5 Hyperlipidemia, unspecified; F41.9 Anxiety disorder, unspecified; Z90.49 Acquired absence of other specified parts of digestive tract; E89.0 Postprocedural hypothyroidism; G51.0 Bell's palsy; K21.9 Gastro-esophageal reflux disease without esophagitis; Z82.49 Family history of ischemic heart disease and other diseases of the circulatory system; Z84.89 Family history of other specified conditions; I10 Essential (primary) hypertension; F32.9 Major depressive disorder, single episode, unspecified; Z85.850 Personal history of malignant neoplasm of thyroid; R94.31 Abnormal electrocardiogram [ECG] [EKG]
CPT/HCPCS: CCU; 36415; 36592; 71046; 82436; 93005; 93010; 93306; J0131; J1644; J1650; J2405; J3250; J3490; J7040; J7060